=== PATIENT | female | born 1945 | race Caucasian/White ===

== ENCOUNTER 2022-05-28 14:44 | Emergency (ER) | payer MEDICARE, BC ==
[2022-05-28 15:16] VITALS: BP 160/80
--- NOTE | 2022-05-28 15:35 | ED Physician Documentation ---
PD HPI LOWER EXT INJURY - Stated complaint Stated Complaint: RT LEG PX - Chief complaint Chief Complaint: Ext Problem - History obtained from History obtained from: Patient - Additional information Additional information: 77-year-old woman with history of atrial fibrillation on Eliquis with pacemaker in place presents with atraumatic right leg pain for the last 2 weeks. She thinks she may have overdone it dancing but there is no specific injury. It hurts worse if she wears high-heeled boots and has to wear flat shoes now. There is no swelling. No shortness of breath or chest pain. PD PAST MEDICAL HISTORY - Allergies Allergies/Adverse Reactions: Allergies Allergy/AdvReac Type Severity Reaction Status Date / Time No Known Drug Allergies Allergy Verified 05/28/22 15:13 PD ED PE NORMAL - Vitals Vital signs reviewed: Yes - General General: Alert and oriented X 3, No acute distress - Abdomen Abdomen: Normal bowel sounds, Soft, Non tender - Back Back: No CVA TTP, No spinal TTP - Derm Derm: Normal color, Warm and dry - Extremities Extremities: Other (Mild tenderness about and above the right knee without swelling. No calf tenderness. Negative Homans' sign. Normal pedal pulses and sensation on both sides.) - Neuro Neuro: Alert and oriented X 3, Normal speech Results - Vitals Vitals: Vital Signs - 24 hr 05/28/22 15:13 Temperature 36.5 C Heart Rate 72 Respiratory 16 Rate Blood Pressure 160/80 H O2 Saturation 98 Oxygen O2 Source Room air - Rads (name of study) 2 view x-ray of the right femur is unremarkable Relevant Findings:: Final report received, EMP independent interpretation of test Right lower extremity Doppler Relevant Findings:: Prelim report reviewed (3 cm Wagoner's cyst, otherwise negative) PD Medical Decision Making - ED course ED course: 77-year-old woman with atraumatic or minimally traumatic right leg pain, fairly unremarkable exam. X-ray and ultrasound were negative except for a Wagoner's cyst which may be causative and she is referred to orthopedics. Departure - Departure Disposition: 01 Home, Self Care Clinical Impression: Wagoner's cyst of knee Qualifiers: Laterality: right Qualified Code(s): M71.21 - Synovial cyst of popliteal space [Wagoner], right knee Pain of lower extremity Qualifiers: Laterality: right Qualified Code(s): M79.604 - Pain in right leg Condition: Good Record reviewed to determine appropriate education?: Yes Instructions: ED Cyst Wagoner Follow-Up: Orthopedic Care [Provider Group] Comments: The x-ray of your femur was normal. The ultrasound did not show a clot, but you do have what is known is a Wagoner's cyst where joint fluid has kind of leaked out of the back of your knee and this is likely to contributing to your pain. For that you can follow-up with a orthopedic surgeon for evaluation for definitive management. The numbers listed on this form and you can call for an appointment. You can take Tylenol as needed per package instructions for pain. Avoid NSAIDs such as Aleve or Motrin due to your anticoagulated status. Discharge Date/Time: 05/28/22 16:43
--- NOTE | 2022-05-28 16:05 | XRAY Report ---
PROCEDURE: Femur 2V RT INDICATIONS: leg pain TECHNIQUE: 2 views of the femur were acquired. COMPARISON: None. FINDINGS: Bones: No fractures or dislocations. No suspicious bony lesions. Soft tissues: No suspicious soft tissue calcifications or masses. IMPRESSION: No acute bony abnormality. Reviewed by: Dano Graves MD on 05/28/2022 4:04 PM PDT Approved by: Dano Graves MD on 05/28/2022 4:04 PM PDT Station ID: [id number]
--- NOTE | 2022-05-28 16:31 | Ultrasound Report ---
PROCEDURE: Duplex Ext Veins Right INDICATIONS: rle pain TECHNIQUE: Real-time imaging, as well as color and pulse Doppler interrogation, were performed of the lower extr emity deep veins from the inguinal ligament to the popliteal fossa. COMPARISON: None. FINDINGS: The deep veins are normally compressible, and free of intraluminal thrombus. Color and pu lse Doppler demonstrate normal phasic intraluminal flow. There is normal augmentation response to di stal compression maneuver. Note is made of a small Wagoner cyst at the posterior right knee margin. IMPRESSION: No DVT found. Small Wagoner cyst at the posterior medial right knee. Reviewed by: Darryn Mclain MD on 05/28/2022 4:30 PM PDT Approved by: Darryn Mclain MD on 05/28/2022 4:30 PM PDT Station ID: [id number]
== END 2022-05-28 16:43 | disposition home or self-care (01) ==
LOC: ED 14:44
DX: M71.21 Synovial cyst of popliteal space [Baker], right knee (principal); M79.604 Pain in right leg
CPT/HCPCS: 99283; 99284

== ENCOUNTER 2022-06-08 08:00 | Outpatient (CLI) | payer MEDICARE, BC ==
--- NOTE | 2022-06-08 14:52 | XRAY Report ---
PROCEDURE: Knee 4 View RT INDICATIONS: RIGHT KNEE PAIN TECHNIQUE: 4 views of the right knee(s) were acquired. COMPARISON: None. FINDINGS: Bones: Mild to moderate degenerative changes of the knee, particularly the medial compartment. Relati vely symmetric involvement of the left knee also seen. No displaced fracture or dislocation. There is chondrocalcinosis. Soft tissues: Trace joint effusion. IMPRESSION: Mild to moderate degenerative changes of the knee joints, involving the medial compartment preferenti ally. Chondrocalcinosis. If there is high concern for further derangement, consider MRI evaluation. Reviewed by: Jose Palmer MD on 06/08/2022 2:51 PM PDT Approved by: Jose Palmer MD on 06/08/2022 2:51 PM PDT Station ID: [id number]
== END 2022-06-08 08:01 | disposition home or self-care (01) ==
LOC: DI.WOS 08:00
PROVIDERS: ATTEND Physician Assistant Surgical
DX: M17.0 Bilateral primary osteoarthritis of knee (principal); M11.261 Other chondrocalcinosis, right knee

== ENCOUNTER 2022-07-07 11:21 | Outpatient (CLI) | payer MEDICARE, BC ==
--- NOTE | 2022-07-15 08:58 | Mammography Report ---
BILATERAL DIGITAL SCREENING MAMMOGRAM 3D/2D: 07/07/2022 CLINICAL: Routine screening. No prior exams were available for comparison. Both breasts are almost entirely fatty (category a/<25% glandular tissue). Bilateral breast implants are intact. No significant masses, calcifications, or other findings are seen in either breast. IMPRESSION: NEGATIVE There is no mammographic evidence of malignancy. A 1 year screening mammogram is recommended. Based on the Tyrer Cuzick model (a risk assessment model) the patients lifetime risk is 1.6% and her 10 year risk is 0.0%. According to the ACR, ACS, and NCCN guidelines, an annual breast MRI exam zuri g with mammogram is recommended if the patients lifetime risk is 20% or greater. This exam was interpreted at Station ID: [id number]. NOTE: For mammograms, a report in lay terms will be sent to the patient. Approximately 15% of breast malignancies will not be visualized mammographically. In the management of a palpable breast mass, a negative mammogram must not discourage biopsy of a clinically suspicious lesion. Electronically Signed By: Clay Cook M.D. acr/richard:07/14/2022 14:35:23 letter sent: No_Letter ACR BI-RADS Category 1: Negative 3341F PARENCHYMAL PATTERN: (F) - The breast(s) demonstrate(s) diffuse fatty replacement. BI-RADS CATEGORY: (1) - 1 Mammogram [id number] 1 year screening LATERALITY: (B)
== END 2022-07-07 11:22 | disposition home or self-care (01) ==
LOC: DI 11:21
DX: Z12.31 Encounter for screening mammogram for malignant neoplasm of breast (principal)

== ENCOUNTER 2022-07-07 12:00 | Outpatient (CLI) | payer MEDICARE, BC ==
--- NOTE | 2022-07-08 12:31 | Ultrasound Report ---
PROCEDURE: Abdomen Limited INDICATIONS: LIVER CYST TECHNIQUE: Real-time focused scanning was performed of the abdomen, with image documentation. COMPARISONS: None. FINDINGS: Liver: Liver is normal in size and homogeneous in echotexture. There is a 0.9 cm simple cyst in lef t hepatic lobe. Gallbladder: Surgically absent. Biliary ducts: Intrahepatic bile ducts are non-dilated. Extrahepatic bile duct caliber measures 6.5 mm. Normal is 6-7 mm or less in diameter, or 10 mm or less post-cholecystectomy. Pancreas: Visualized portions of the pancreas are sonographically normal. Right kidney: Normal in size and echotexture. Right kidney measures 10.9 cm long. No hydronephrosis or nephrolithiasis. No solid masses. No complex renal cystic lesions which require follow-up. Aorta: Visualized aorta is normal in caliber at less than 3 cm. IVC: Intrahepatic inferior vena cava is patent. Miscellaneous: No free abdominal fluid. IMPRESSION: 1. A 0.9 cm simple cyst in the left hepatic lobe. 2. Otherwise normal limited abdominal ultrasound exam. Reviewed by: Trang Chong MD on 07/08/2022 12:30 PM PDT Approved by: Trang Chong MD on 07/08/2022 12:30 PM PDT Station ID: [id number]
== END 2022-07-07 23:59 | disposition home or self-care (01) ==
LOC: DI 12:00
PROVIDERS: ATTEND Nurse Practitioner Family
DX: K76.89 Other specified diseases of liver (principal)

== ENCOUNTER 2022-11-19 10:27 | Outpatient (CLI) | payer MEDICARE, BC ==
--- NOTE | 2022-11-20 06:38 | DEXA Report ---
PROCEDURE: Dexa Spine and/or Hip INDICATIONS: OSTEOPOROSIS TECHNIQUE: Dual energy x-ray absorptiometry (DXA) was performed on a [employer] System. Regions measur ed are the AP Spine, femoral neck, and if needed forearm. COMPARISON: None FINDINGS: Lumbar Spine: Bone Mineral Density 1.158 g/cm/cm,T score -0.2. Normal. Left Femoral Neck: Bone Mineral Density 0.898 g/cm/cm, T score -1.0. Normal. Left Hip: Bone Mineral Density 0.911 g/cm/cm,T score -0.8. Normal. (T score greater or equal to -1.0: NORMAL) (T score from -1.1 to -2.4: OSTEOPENIA) (T score less than or equal to -2.5 to: OSTEOPOROSIS) Impression: By WHO criteria, this patient has normal bone density. Patients with diagnosis of osteoporosis or osteopenia should have regular bone mineral density assess ment. For those eligible for Medicare, routine testing is allowed once every 2 years. Testing frequ ency can be increased for patients who have rapidly progressing disease or for those who are receivin g medical therapy to restore bone mass. Reviewed by: Arash Liao MD on 11/20/2022 6:36 AM PDT Approved by: Arash Liao MD on 11/20/2022 6:36 AM PDT Station ID: [id number]
== END 2022-11-19 10:28 | disposition home or self-care (01) ==
LOC: DI 10:27
PROVIDERS: ATTEND Nurse Practitioner Family
DX: M81.0 Age-related osteoporosis without current pathological fracture (principal)

== ENCOUNTER 2023-01-25 11:40 | Outpatient (CLI) | payer MEDICARE, BC ==
--- NOTE | 2023-01-25 15:13 | Ultrasound Report ---
PROCEDURE: Abdomen Limited INDICATIONS: LIVER CYST TECHNIQUE: Real-time focused scanning was performed of the abdomen, with image documentation. COMPARISONS: Ultrasound abdomen 07/07/2022. FINDINGS: Liver: Liver measures 14.1 cm with steatosis. Left lobe simple cyst measuring 10 x 9 x 9 mm is uncha nged. Gallbladder: Removed. Biliary ducts: Intrahepatic bile ducts are non-dilated. Extrahepatic bile duct caliber measures 9.4 mm. Normal is 6-7 mm or less in diameter, or 10 mm or less post-cholecystectomy. Pancreas: Visualized portions of the pancreas are sonographically normal. Right kidney: Normal in size and echotexture. Right kidney measures 11.9 cm long. No hydronephrosis or nephrolithiasis. No solid masses. No complex renal cystic lesions which require follow-up. Aorta: Visualized aorta is normal in caliber at less than 3 cm. IVC: Intrahepatic inferior vena cava is patent. Miscellaneous: No free abdominal fluid. IMPRESSION: Stable simple left hepatic lobe cyst. Reviewed by: Judy Wagoner MD on 01/25/2023 3:11 PM PST Approved by: Judy Wagoner MD on 01/25/2023 3:11 PM PST Station ID: [id number]
== END 2023-01-25 11:41 | disposition home or self-care (01) ==
LOC: DI 11:40
PROVIDERS: ATTEND Internal Medicine
DX: K76.89 Other specified diseases of liver (principal)

== ENCOUNTER 2023-05-10 13:25 | Outpatient (CLI) | payer MEDICARE, BC ==
[2023-05-10 13:55] LABS: CREATININE 0.8 mg/dL (0.6-1.3)
--- NOTE | 2023-05-10 17:13 | CT Report ---
PROCEDURE: Abdomen/Pelvis W INDICATIONS: ABD PAIN CONTRAST: Omni 300 100ml TECHNIQUE: After the administration of intravenous contrast, a CT scan of the abdomen and pelvis was performed. Images were recorded and evaluated at appropriate window settings. Reformats: coronal and sagittal. F or radiation dose reduction, the following was used: automated exposure control, adjustment of mA and /or kV according to patient size. COMPARISON: None. FINDINGS: Image quality: Diagnostic. Lower chest: Bilateral mammoplasties. Pacemaker. Mild cardiomegaly. Liver: No solid mass. Gallbladder and biliary tree: Surgically absent. No biliary dilation, accounting for post-cholecystec randi state. Spleen: No splenomegaly. Pancreas: No pancreatic ductal dilation. Adrenals: No adrenal nodule. Kidneys and ureters: No hydronephrosis. No renal cystic lesion which requires follow up. No solid mas s. Stomach, bowel and peritoneum: No bowel distension. No pathologic free fluid. Large fecal load. Lymph nodes: No central or retroperitoneal adenopathy. Vessels: No infrarenal aortic aneurysm. PELVIS Reproductive organs: Uterus is surgically absent. Pelvic floor relaxation with cystocele.. No adrenal masses. Bladder: No abnormal wall thickening, accounting for underdistention. Pelvic floor relaxation with cy stocele. Pelvic lymph nodes: No pelvic adenopathy by size criteria. Bones: No aggressive osseous abnormality. Other: No significant ventral or inguinal hernia. IMPRESSION: 1. No acute abdominal process. 2. Remote cholecystectomy and hysterectomy. 3. Anterior pelvic floor relaxation. 5. Large fecal load. 6. Mild cardiomegaly. Reviewed by: Dano Graves MD on 05/10/2023 5:11 PM PDT Approved by: Dano Graves MD on 05/10/2023 5:11 PM PDT Station ID: [id number]
[2023-05-10] MEDS: DIATRIZOATE MEGLU/DIATRIZO SOD 30 ML BOTTLE PO ONE (21:32)
[2023-05-10] MEDS: iohexoL-300 100 ML VIAL IVP ONE (21:32)
== END 2023-05-10 13:26 | disposition home or self-care (01) ==
LOC: LAB 13:25
PROVIDERS: ATTEND Internal Medicine
DX: R10.31 Right lower quadrant pain (principal); K59.00 Constipation, unspecified; Z79.899 Other long term (current) drug therapy; Z90.49 Acquired absence of other specified parts of digestive tract; Z90.710 Acquired absence of both cervix and uterus; I51.7 Cardiomegaly
CPT/HCPCS: 36415; 74177; 82565; Q9967

== ENCOUNTER 2023-06-06 10:41 | Outpatient (CLI) | payer MEDICARE, BC ==
--- NOTE | 2023-06-06 14:04 | XRAY Report ---
PROCEDURE: Hip w/Pelvis 2-3V RT INDICATIONS: RIGHT HIP PAIN TECHNIQUE: 2 views of the hip were acquired. COMPARISON: None. FINDINGS: Bones: Moderate bilateral hip arthrosis. Lumbosacral and pubic symphysis degenerative changes also p resent. No acute fracture or dislocation. Soft tissues: No suspicious calcifications. There are surgical clips projecting over the groin. IMPRESSION: Moderate bilateral hip arthrosis. No acute radiographic abnormality. If there is high concern for fur ther derangement, consider MRI evaluation. Reviewed by: Jose Palmer MD on 06/06/2023 2:03 PM PDT Approved by: Jose Palmer MD on 06/06/2023 2:03 PM PDT Station ID: [id number]
== END 2023-06-06 10:42 | disposition home or self-care (01) ==
LOC: DI 10:41
PROVIDERS: ATTEND Physician Assistant Surgical
DX: M16.0 Bilateral primary osteoarthritis of hip (principal)

== ENCOUNTER 2023-06-30 12:16 | Outpatient (CLI) | payer MEDICARE, BC ==
--- NOTE | 2023-06-30 17:52 | XRAY Report ---
PROCEDURE: Hip w/Pelvis 2-3V RT INDICATIONS: R HIP PAIN TECHNIQUE: 3 views of the hip were acquired. COMPARISON: 06/06/2023 FINDINGS: Bones: Moderate bilateral hip arthrosis. Pubic symphysis and lumbosacral degenerative changes. No [place] displaced fracture or dislocation is identified. Soft tissues: Moderate to large fecal loading. Pelvic phleboliths. There are pelvic clips. IMPRESSION: Moderate bilateral hip arthrosis. Given persistent clinical concern, consider cross-sectional imaging follow-up, preferably with MRI. Reviewed by: Jose Palmer MD on 06/30/2023 5:51 PM PDT Approved by: Jose Palmer MD on 06/30/2023 5:51 PM PDT Station ID: [id number]
== END 2023-06-30 12:17 | disposition home or self-care (01) ==
LOC: DI 12:16
PROVIDERS: ATTEND Physician Assistant Surgical
DX: M16.0 Bilateral primary osteoarthritis of hip (principal)